=== PATIENT | female | born 1970 | race Caucasian/White ===

== ENCOUNTER 2022-06-25 08:28 | Emergency (ER) | payer OTHER, SELFPAY ==
[2022-06-25 08:38] VITALS: BP 138/62; PULSE 69; RESP 18; O2SAT 98; BMI 42.8
[2022-06-25 09:00] VITALS: BP 130/62; PULSE 69; RESP 18; O2SAT 97
--- NOTE | 2022-06-25 09:01 | CRLHL7_ITS ---
For Patients: As a result of the Century Cures Act, medical imaging exams and procedure reports are released immediately into your electronic medical record. You may view this report before your referring provider. If you have questions, please contact your health care provider. INDICATION: Left flank pain COMPARISON: None TECHNIQUE: CT examination of the abdomen and pelvis was performed without intravenous contrast. Thin section axial images were obtained from the lung bases through the pubic symphysis. Please note that all CT scans at this facility use dose modulation, iterative reconstruction, and/or weight-based dosing when appropriate to reduce radiation dose to as low as reasonably achievable. FINDINGS: LUNG BASES: Bibasilar atelectasis.The heart size is normal at the lung bases. LIVER/BILIARY SYSTEM:Vague low-density lesion in the posterior segment of the right lobe of the liver. This is too small to characterize but likely a small cyst. No biliary ductal dilatation.The gall bladder appears normal. ADRENALS: Normal non-contrast appearance KIDNEYS, URETERS and BLADDER:The kidneys are normal in size. No calcified calculus within either kidney. No hydronephrosis or hydroureter. There are multiple calcifications in the retroperitoneum the pelvis which are probably combination of vascular calcifications and phleboliths. There is no convincing calculus within either ureter. The bladder appears normal SPLEEN:Normal non-contrast appearance. PANCREAS: Normal non-contrast appearance. RETROPERITONEUM and MESENTERY: Atherosclerotic vascular calcifications GASTROINTESTINAL SYSTEM: There is no evidence of diverticulitis, colitis, mechanical obstruction, or appendicitis. The small bowel as visualized appears normal.Mild fecal retention. Scattered diverticulosis. PELVIS: No mass, adenopathy or free fluid. OSSEOUS STRUCTURES and ABDOMINAL WALL: There is an age-appropriate appearance of the osseous structures.Very small fat containing umbilical hernia. OTHER: No free fluid or free air. IMPRESSION: There is no indication of current or recent obstructive uropathy on either side. No specific visible cause for flank pain. Please note that all CT scans at this facility use dose modulation, iterative reconstruction, and/or weight-based dosing when appropriate to reduce radiation dose to as low as reasonably achievable. Dictated by Jose Norton MD @ 06/25/2022 9:31:56 AM (Electronically Signed)
--- NOTE | 2022-06-25 09:02 | ED_ITS ---
HPI - General Adult General Chief complaint: Flank Pain Stated complaint: left side flank pain Time Seen by Provider: 06/25/22 08:31 History of Present Illness HPI narrative: This 52-year-old female comes in reporting left flank pain that began 3 days ago. It was more mild at that time and yesterday she had no discomfort. Early this morning in bed she awoke with pain in the same area again. She does not report any injury event or strenuous activity. Pain does not radiate down into her abdomen or groin. She does not have a personal history of kidney stones but states that her father did have these. She does not have any fever or respiratory symptoms. She did have bronchitis a couple weeks ago which has resolved. She states that she can sometimes reproduce this pain by taking a deep breath. She does not have any abdominal pain or dysuria symptoms. Related Data Home Medications Medication Instructions Recorded Confirmed hydroxychloroquine 200 mg tablet mg PO 06/25/22 Previous Rx's Medication Instructions Recorded ketorolac 10 mg tablet 10 mg PO Q8H 5 days #15 tabs 06/25/22 methylprednisolone 4 mg tablets in See Rx Instructions PO .COMPLEX 06/25/22 a dose pack (Medrol (Jeramie)) #21 ea Allergies Allergy/AdvReac Type Severity Reaction Status Date / Time iodine Allergy Verified 06/25/22 08:37 nickel Allergy Verified 06/25/22 08:37 contrast dye Allergy Uncoded 06/25/22 08:37 Review of Systems Status of ROS: Reports: 10 or more systems reviewed and unremarkable except as noted in History and below Narrative: Constitutional: No fevers, no weight gain or loss. Eyes: No discharge. No vision changes. HENT: No congestion, no sore throat, no ear pain. Cardiovascular: No chest pain, no palpitations. Respiratory: No shortness of breath, no wheezes, no cough. Gastrointestinal: No abdominal pain, no vomiting, no diarrhea. Left flank pain as described above. Genitourinary: No dysuria, no hematuria. Musculoskeletal: Normal range of motion. Skin: No rashes, no pruritis. Neurological: No dizziness, weakness, sensory change, speech change. Endo/Heme/Allergies: No bruising or bleeding. No polydipsia. Pysch: no suicidality, no anxiety, no insomnia. All other systems reviewed and are negative. PFSH PFSH Social History Smoking Status: Former smoker Do you use any of these nicotine containing products: None Second hand tobacco smoke exposure: Yes How often do you have a drink containing alcohol: 2-3 times a week How many standard drinks containing alcohol do you have on a typical day: 1 or 2 How often do you have six or more drinks on one occasion: Less than monthly AUDIT-C Alcohol total score: 4 Non-prescribed substance use: denies use service: No Exam Narrative: Exam Narrative: Constitutional: Well-developed, well-nourished, no acute distress. HEENT: Normocephalic, atraumatic. Neck: Normal range of motion. Nontender. Supple. Heart: Regular. No murmurs. Normal rate. Intact distal pulses. Lungs: Clear to auscultation. No chest discomfort. No wheezes, rhonchi, or rales. Abdomen: Normal bowel sounds. Nontender. No rebound tenderness. Tenderness when percussing over the left flank area. Genitalia: Deferred. Back: No midline tenderness. Normal range of motion. Extremities: Normal range of motion. No injury. Skin: Intact. No rash. Warm. No erythema or pallor. Neurologic: No altered sensation. No weakness. Alert and oriented. Psychiatric: No suicidality. No anxiety or depression. No insomnia. Nursing notes and vitals signs are reviewed. Const: Vital Signs, click to edit/add: Vital Signs - 24 hr 06/25/22 08:38 Pulse Rate [Left P ulse Oximeter] 69 Respiratory Rate 18 Blood Pressure [Le ft Upper Arm] 138/62 Pulse Oximetry 98 Oxygen Delivery Me thod Room Air Course Vital Signs Vital signs: Initial Vital Signs Temperature Source Temporal Artery Scan 06/25/22 08:38 Pulse Rate 69 06/25/22 08:38 Pulse Rhythm 06/25/22 08:38 Respiratory Rate 18 06/25/22 08:38 Blood Pressure 138/62 06/25/22 08:38 Blood Pressure Mean 87 06/25/22 08:38 Blood Pressure Position Supine 06/25/22 08:38 Pulse Oximetry 98 06/25/22 08:38 Oxygen Delivery Method 06/25/22 08:38 Vital Signs Pulse Rate 69 06/25/22 08:38 Respiratory Rate 18 06/25/22 08:38 Blood Pressure 138/62 06/25/22 08:38 Pulse Oximetry 98 06/25/22 08:38 Oxygen Delivery Method 06/25/22 08:38 Pulse Rate 69 06/25/22 08:38 Respiratory Rate 18 06/25/22 08:38 Blood Pressure 138/62 06/25/22 08:38 Pulse Oximetry 98 06/25/22 08:38 Oxygen Delivery Method 06/25/22 08:38 Medical Decision Making MDM Narrative Medical decision making narrative: This patient comes in with left flank pain that is reproducible when taking a deep breath and with certain movements. The pain started a few days ago but became worse recently. I discussed lab and imaging options with the patient. She elected to a CT scan without contrast as there was suspicion of a kidney stone. This returns with no findings to explain the patient's discomfort. She does have some brief episodes of sharp pain in this area that are suggestive of some kind of nerve mediated pain. Also with the reproducibility of this pain it seems likely that she has chest wall pain. She did have a recent bronchitis and this may have triggered some symptoms. In a process of shared decision making she declined any further testing at this point. I did describe signs and symptoms that would indicate a need for return and re-evaluation. Her vital signs have remained normal throughout her visit here. She did received prescription for Toradol and Medrol Dosepak. Imaging Data CT scan - abdomen: Radiologist's impression: There is no indication of current or recent obstructive uropathy on either side. No specific visible cause for flank pain. Discharge Plan Discharge Clinical Impression: Acute left flank pain Patient Disposition: Home, Self-Care Condition: Stable Additional Instructions: Take medication as needed and indicated. Follow up with MD or return if worsening. Prescriptions: New ketorolac 10 mg tablet 10 mg PO Q8H 5 Days Qty: 15 0RF methylprednisolone [Medrol (Jeramie)] 4 mg tablets,dose pack See Rx Instructions .ROUTE .COMPLEX Qty: 21 0RF Rx Instructions: orally per package directions No Action hydroxychloroquine 200 mg tablet PO Label Comments: TAKE 2 TABLETS BY MOUTH DAILY Follow Up/Referrals: Generic,Amb Provider [Primary Care Provider] - Stand Alone Forms: [employer] Info Instructions
--- OUTSIDE RECORDS SUMMARY | 2022-06-25 09:09 | XMS_ITS | Clinical Summary ---
:1970 Author Organization [facility] [place] [address] Care Team Providers Name Role Phone Los Rogel MD Unavailable None Primary Care Provider Unavailable Allergies Active Allergy Reactions Severity Noted Date Comments Iodinated Contrast Media Anaphylaxis 01/30/2015 Iodine *Unknown 01/26/2007 Medications Medication Sig Dispensed Refills Start End Date Status Date ascorbic acid, vitamin Take 1 tablet by 0 Active C, (VITAMIN C) 1,000 mg mouth once daily. 7 tablet acetaminophen SR Take 2 tablets by 0 Active (TYLENOL ARTHRITIS mouth every 8 9 PAIN) 650 mg hours if needed. Extended-Release tablet Max acetaminophen dose: 4000mg in 24 hrs. Magnesium 30 mg tablet Take by mouth. 0 Active 1 naproxen (Aleve) 220 mg 2 tablets daily 0 Active tablet 2 zinc 50 mg tablet Take 1 Tablet (50 0 Active mg) by mouth once 2 daily. naproxen (EC-NAPROSYN) Take 1 Tablet (500 60 Tablet 2 12/28/19 2 Active 500 mg EC mg) by mouth every 2 tabletIndications: 12 hours if needed Patellofemoral for Pain. arthritis of right knee meloxicam 15 mg Take 1 Tablet (15 30 Tablet 2 Active tabletIndications: mg) by mouth once 2 Patellofemoral daily. arthritis of right knee hydrOXYchloroQUINE TAKE 2 TABLETS BY 180 Tablet 0 Active (PLAQUENIL) 200 mg MOUTH DAILY 2 tabletIndications: Rheumatoid arthritis, involving unspecified site, unspecified whether rheumatoid factor present (HC) benzonatate (Tessalon Take 1 Capsule 30 Capsule 0 Active Perles) 100 mg (100 mg) by mouth 2 capsuleIndications: 3 times daily if Bronchitis with needed for Cough. bronchospasm albuterol HFA (ProAir Inhale 1-2 Puffs 1 Each 0 Active HFA) 90 mcg/actuation by mouth every 6 2 inhalerIndications: hours if needed Bronchitis with for Shortness of bronchospasm Breath 1st choice. doxycycline Take 1 Tablet (100 14 Tablet 0 06/03/20 (VIBRAMYCIN) 100 mg mg) by mouth two 2 22 tabletIndications: times daily for 7 Bronchitis with days. bronchospasm Active Problems Problem Noted Date Plantar fasciitis 03/20/2018 Gastroesophageal reflux disease without esophagitis Overview: pepcid prn basis Pain medication agreement 11/23/2014 Lumbar radicular pain 05/25/2014 Overview: See below Lumbar foraminal stenosis 05/25/2014 Overview: Pt scheduled for decompression/foraminot carol L5-S1 with Dr. Sorto on 01/30/15 Encounter for long-term (current) use of high-risk med ication 02/20/2009 Rheumatoid arthritis(714.0) 07/29/2005 Overview: [place] [facility] Dr. Bynum MIGRAINE CHRONIC 07/29/2005 Overview: She has every 4-5 months attack on ibupr ofen Resolved Problems Problem Noted Date Resolved Date Lumbar disc herniation at L5-S1 with retrolisthesis 05/25/20 14 01/19/2015 Left Lateral L2-3 disk herniation 05/25/20142014 Encounter for long-term (current) use of other medications 0 01/26/2007 02/20/2009 FIBROID 07/29/2005 08/18/2008 Encounters Date Type Specialty Care Team Description 05/26/2022 Office Visit Angie Long Nose Problem ( Symptoms SHIVANI Schuler started Tuesda y. Sneezing and coughing an d symptoms have gotten wor se. Cough, sore throat, na karen congestion, sin us headache./Had c hills second day. Denies fev ers. Lost taste and smell ./Patient used Nyquil PM and multi symptom Jessenia se ltzer during the day along w ith lots of fluids./Tested negative for COVID-19 3 time s. Last test yesterday.) 05/26/2022 Travel 05/15/2022 Procedure Only Faustino Berg Injection (Medication) MD Bhupinder (Right knee Syn visc... 05/15/2022 Travel 05/06/2022 Orders Only Sally Downs, <No sca ns attached> 03/30/2022 Refill Los Rogel MD Refil l Request (Hydroxychloroq uine) from Last 3 Months Immunizations Name Administration Dates Next Due COVID-19 vaccine (Watly BV 30mcg/0.3mL) PF, 1, 12/19/2020 MDV Td (Age >=7 Years) 11/05/2002 Tdap 11/18/2013 Family History Medical History Relation Name Comments Cancer Father one kidney remov ed for CA Diabetes Father Heart Disease Father stents, A fib Cancer Mother Lung cancer with Mets Genetic Other mother lung CA, age 53~father DJD, DM2, CAD, HTN, kidney stones~MGM stomach CA~PGM CA uncertain type~M GF colon CA~PGF prostate CA~sister sz disorder~~cancer -mother~HTN-heart disease-diabetes -father Unknown Sister 1 Unknown Sister 2 epilepsy Cancer Sister 3 thyroid Cancer-breast No Family History Relation Name Status Comments Father Mother Other Sister 1 Sister 2 Sister 3 Social History Tobacco Use Types Packs/Day Years Used Date Former Smoker Cigarettes 0.5 10 Quit: 02/22/20 03 Smokeless Tobacco: Never Used Tobacco Cessation: Counseling Given: Yes Alcohol Use Standard Drinks/Week Comments Yes 0 (1 standard drink = 0.6 oz pure alcoho l) Alcohol Habits Answer Date Recorded How often do you have a drink containing alcohol? 2-4 times a month 12/17/2018 How many drinks containing alcohol do you have on a 1 or 2 12/17/2018 typical day when you are drinking? How often do you have six or more drinks on one Not asked occasion? Comment: Not asked Financial Resource Strain Answer Date Recorded How hard is it for you to pay for the very basics like Not h neetu at all 12/22/2018 food, housing, medical care, and heating? Intimate Partner Violence Answer Date Recorded Within the last year, have you been afraid of your partner o r No 12/22/2018 ex-partner? Within the last year, have you been humiliated or emotionall y No 12/22/2018 abused in other ways by your partner or ex-partner? Within the last year, have you been kicked, hit, slapped, or No 12/22/2018 otherwise physically hurt by your partner or ex-partner? Within the last year, have you been raped or forced to have any No 12/22/2018 kind of sexual activity by your partner or ex-partner? Food Insecurity Answer Date Recorded Within the past 12 months, you worried that your food would Never true 12/22/2018 run out before you got money to buy more. Within the past 12 months, the food you bought just didn't N ever true 12/22/2018 last and you didn't have money to get more. Transportation Needs Answer Date Recorded In the past 12 months, has lack of transportation kept you f rom No 12/22/2018 medical appointments or from getting medications? In the past 12 months, has lack of transportation kept you f rom No 12/22/2018 meetings, work, or getting things needed for daily living? Education Answer Date Recorded What is the highest level of Professional school degree (e.g ., , 12/22/2018 school you have completed or the DDS, DVM, ANDRE) highest degree you have received? Sex Assigned at Date Recorded Not on file COVID-19 Exposure Response Date Recorded In the last 10 days, have you been in contact with No / Unsu re 05/26/2022 10:53 AM CDT someone who was confirmed or suspected to have Coronavirus/COVID-19? Obstetrics History Last Filed Vital Signs Vital Sign Reading Time Taken Comments Blood Pressure 127/85 05/26/2022 11:00 AM CDT Pulse 65 05/26/2022 11:00 AM CDT Temperature 36.7 ??C (98 ??F) 05/26/2022 11:00 AM CDT Respiratory Rate 16 12/16/2021 2:30 PM CDT Oxygen Saturation 97% 05/26/2022 11:00 AM CDT Inhaled Oxygen Concentration - - Weight 120.2 kg (265 lb) 05/26/2022 11:00 AM CDT Height 165.1 cm (5' 5) 12/27/2021 1:17 PM CDT Body Mass Index 44.1 12/27/2021 1:17 PM CDT Plan of Treatment Upcoming Encounters Date Type Specialty Care Team Description 12/17/2022 Office Visit Los Rogel MD [address] [place] [id number] (Wo rk) Health Maintenance Due Date Last Done Comments Depression screening for age 12+ 1984 Pap test for age 21-65 11/12/2013 11/12/2010 (Declined) Colonoscopy through age 75 2017 Mammogram for age 45-75 2017 12/07/2013 Lipids for age 45-75 11/18/2018 11/18/2013 COVID-19 vaccine series (3 - Booster for 03/06/2021 021, 12/19/2020 Pfizer series) Influenza for age 50-64 2022 Zoster (shingles) series for age 50+ (1 of 2022 2) BMI (ht and wt on same day) for age 18+ 12/27/2022 12/28/19, 12/22/2018 Tetanus booster 11/19/2023 11/18/2013, 11/05/2002 Hepatitis C screening for age 18-79 Completed 12/14/2003 Tdap Completed 11/18/2013 Procedures Procedure Name Priority Date/Time Associated Diagnosis Comme nts COVID 19 Routine 05/26/2022 11:30 Bronchitis with Results for this AM CDT bronchospasm procedure are i n the results section. COVID 19 COLLECTION Routine 05/26/2022 11:30 Bronchitis with R esults for this AM CDT bronchospasm procedure are i n the results section. from Last 3 Months Results COVID 19 (05/26/2022 11:30 AM CDT) Analysis Performed At Patho logist Time Signature COVID 19 Negative Negative 05/27/2022 [facility] 4:29 PM CDT LAB[facility]ATORY[facility] Comment: All PCR tests are subject to fa lse negative result due to variability in viral load and collection technique. A n egative result does not rule out a SARS-CoV-2 infection. Clinical correlation required . Specimen Anatomical Location / Collection Method Collection Chris e Received Time (Source) Laterality / Volume Other SPECIMEN FROM Non-Blood / 05/26/2022 11:30 05/27/2022 7:34 NASOPHARYNGEAL Unknown AM CDT AM CDT STRUCTURE / Unknown Narrative [facility]ORAT[facility] LABORAT ORY - 05/27/2022 4:29 PM CDT This test has been authorized by FDA und er an Emergency Use Authorization (EUA). This test is only authorized for the duration of time the declaration that circumstances exist justifying the authorization of th e emergency use of in vitro diagnostic tests for detection of SARS-CoV-2 virus and/or diagnosis of COVID-19 infection under section 564(b)(1) of the Act, 21 U.S.C. 360bbb-3(b)(1), unless the authorization is terminated or revoked sooner. Angie PARRISH MICROBIOLOGY Performing Organization Address [facility] Phon e Number [facility] [address] [place] [id number] LABORATORY-CENTRAL 2000 LABORATORY COVID 19 COLLECTION (05/26/2022 11:30 AM CDT) [facility] gist Method Time Signature TESTING [facility] 05/27/2022 [facility] Laboratory 7:34 AM CDT LABORATORY-CE NTRAL LABORATORY Comment: Specimen submitted to [facility] for testing. Specimen Anatomical Location / Collection Method Collection Chris e Received Time (Source) Laterality / Volume Other SPECIMEN FROM Non-Blood / 05/26/2022 11:30 05/26/2022 NASOPHARYNGEAL Unknown AM CDT 11:40 AM CDT STRUCTURE / Unknown Angie PARRISH SEND OUTS Performing Organization Address [facility] Phon e Number [facility] [address] [place] [id number] LABORATORY-CENTRAL 2000 LABORATORY from Last 3 Months Insurance Payer Benefit Plan / Subscriber ID Effective Dates Phone Addre ss Type Group [employer] [id number] 2013-Presen [address] [address] [place] [address] MEDICA MEDICA ELECT [id number] 2019-Present [address] [address] [place] [address] Liliya Fuller Workers Comp Self [address] (Home) [place], [place] [phone] (Work) Advance Directives Latest Code Status on File Code Status Date Activated Date Inactivated Comments Full Code 01/30/2015 4:43 PM 01/31/2015 6:05 PM Full Code 01/30/2015 9:51 AM 01/30/2015 4:43 PM Care Teams Supervisor Record Press Relationship Specialty Start Date End Date None PCP - General 12/16/21 . Los Rogel MD Rheumatology Rheumatology 01/21/18 [address] [facility] [address] [place] [address]
[2022-06-25 09:30] VITALS: BP 128/72; PULSE 63; O2SAT 95
[2022-06-25 10:00] VITALS: BP 127/69; PULSE 67; O2SAT 95
== END 2022-06-25 10:45 | disposition home or self-care (01) ==
PROVIDERS: Emergency Provider Emergency Medicine Emergency Medical Services
DX: R10.9 Unspecified abdominal pain (principal)
CPT/HCPCS: 74176; 81001; 99284